=== PATIENT | male | born 1935 | race Caucasian/White ===

== ENCOUNTER → 2017-05-19 | Outpatient (CLI) | payer OTHER, MEDICARE ==
[~2017-05-19] MED LIST: AMLO-114 PO; ASPI81TA28 PO; CALC667C4 PO; CHOL100010 PO; ENOX40IN SQ; FINA5TAB PO; FLUT0.15 NAE; METO25TA56 PO; MULT-506 PO; NTRGSL/4 UT; PSYL55.43 PO; TAMS0.4C38 PO; TIOTCAP INH; TRIA0.02 TOP; WARF10TA4 PO
--- NOTE | 2017-05-19 15:54 | DIAGNOSTIC IMAGING REPORT ---
EXTREMITY NONVASCULAR LIMITED CLINICAL HISTORY: BILATERAL EXTREMITY MASSES TECHNIQUE: Ultrasound COMPARISON STUDY: None FINDINGS: Nodularity of the subcutaneous tissues medial right calf. This is somewhat heterogeneous but is well-circumscribed with maximum dimensions of 4 x 4 x 2 cm. Given the patient's history of anticoagulation the possibility of hematoma is considered. If this does not resolve, fine-needle aspiration or resection be suggested. IMPRESSION: Nonspecific 4 x 4 x 2 cm well-circumscribed nodule medial right calf. This may represent hematoma given the patient's history, although if this does not resolve surgical consultation would be suggested. The above report was generated using voice recognition software. It may contain grammatical, syntax or spelling errors. Electronically signed by: Eliot Cuellar M.D. 05/19/2017 3:52 PM Dictated Date/Time: 05/19/2017 3:50 PM
--- NOTE | 2017-05-19 15:56 | DIAGNOSTIC IMAGING REPORT ---
EXTREMITY NONVASCULAR LIMITED HISTORY: 82 years-old Male BILATERAL EXTREMITY MASSES COMPARISON: Ultrasound of the right lower extremity same day TECHNIQUE: Multiple real-time sonographic images of the left lower extremity anterior calf were obtained assessing grayscale appearance and color flow. FINDINGS: Complex heterogeneous subcutaneous tissues are seen within the anterior lower leg there are [place] there is an internal anechogenicity overall measuring 2.5 x 1.2 x 1.9 cm without internal vascularity. There is mild increased through transmission. No shadowing calcifications with involvement to the deep musculature identified. This appears to abut the anterior cortex of the tibia. IMPRESSION: Complex hypoechoic collection at the area of interest in the pretibial tissues measuring up to 2.5 cm without internal vascularity suggests hematoma or abscess. The above report was generated using voice recognition software. It may contain grammatical, syntax or spelling errors. Electronically signed by: Norbert Sow M.D. 05/19/2017 3:55 PM Dictated Date/Time: 05/19/2017 3:51 PM
--- NOTE | 2017-05-26 10:17 | CODING QUERY MEDICAL NECESSITY ---
CQSUPPORTING DIAGNOSIS NEEDED A supporting diagnosis is required for the test/procedure performed on this patient in order for us to be reimbursed by the patient's insurance. Please provide a supporting diagnosis for the following test/procedure listed below next to the test name along with your signature. *If there is no additional diagnosis for this patient that would support the following test/procedure please document that below next to the test/procedure. Test(s)/Procedure(s) that require a supporting diagnosis: DOS 05/19/17 NONVASCULAR EXTREMITY ULTRASOUND Provider Signature: Date: Thank you Loree Hayes [facility] Information Management Once completed, please kindly fax back to [phone] For questions please call [phone]
== END | disposition home or self-care (01) ==
LOC: C.ULTR 14:57
PROVIDERS: ATTEND Nurse Practitioner Family
DX: R22.9 Localized swelling, mass and lump, unspecified (principal)